=== PATIENT | male | born 1985 | race Caucasian/White ===

== ENCOUNTER 2016-08-31 18:01 | Emergency (ER) | payer MEDICAID ==
[~2016-08-31] VITALS: Ht 177.8 cm; Wt 90.7 kg
[2016-08-31 18:28] VITALS: BP 117/63
--- NOTE | 2016-08-31 19:00 | NUR ---
Patient to bed 07.
--- NOTE | 2016-08-31 19:08 | NUR ---
Dr. Goldberg evaluating patient at bedside.
[2016-08-31] MEDS ORDERED: IBUPROFEN 600 MG TAB PO ONE (19:10)
[2016-08-31] MEDS ORDERED: METHOCARBAMOL 500 MG TAB PO ONE (19:10)
--- NOTE | 2016-08-31 19:15 | NUR ---
PATIENT PRESENTS TO ED WITH C/O RT SHOULDER PAIN/RT FINGER NUMBNESS . PT DENIES N/V/D; SKIN IS PINK/WARM/DRY; AAOX4 WITH EVEN AND STEADY GAIT; LUNGS CLEAR BL; HR EVEN AND REGULAR; PT DENIES ANY FEVER, CP, SOB, OR COUGH AT THIS TIME; PATIENT STATES PAIN OF 8/10 AT THIS TIME; VSS; PATIENT POSITIONED FOR COMFORT; HOB ELEVATED; BEDRAILS UP X2; BED DOWN. ER MD MADE AWARE OF PT STATUS.
--- NOTE | 2016-08-31 19:24 | NUR ---
Patient going to XRAY via wheelchair per tech.
--- NOTE | 2016-08-31 19:30 | NUR ---
PT TAKEN TO XRAY VIA WC
--- NOTE | 2016-08-31 19:34 | NUR ---
Patient back from XRAY via wheelchair per tech.
--- NOTE | 2016-08-31 19:35 | NUR ---
PT RETURNED FROM WC IN STABLE CONDITION
--- NOTE | 2016-08-31 20:00 | NUR ---
LABS AND PIV STARTED, PT TOLERATED WELL
[2016-08-31 20:17] VITALS: BP 111/65
--- NOTE | 2016-08-31 20:17 | NUR ---
Patient discharged with v/s stable. Written and verbal after care instructions given and explained. Patient alert, oriented and verbalized understanding of instructions. Ambulatory with steady gait. All questions addressed prior to discharge. ID band removed. Patient advised to follow up with PMD. Rx of ROBAXIN 500MG, MOTRIN 600MG given. Patient educated on indication of medication including possible reaction and side effects. Opportunity to ask questions provided and answered.
== END 2016-08-31 20:17 | disposition home or self-care (01) ==
LOC: MED 18:01
DX: S46.911A Strain of unspecified muscle, fascia and tendon at shoulder and upper arm level, right arm, initial encounter (principal); X58.XXXA Exposure to other specified factors, initial encounter; Y93.89 Activity, other specified; Y92.89 Other specified places as the place of occurrence of the external cause; Y99.8 Other external cause status
CPT/HCPCS: 73030; 99284

== ENCOUNTER 2016-09-09 17:55 | Emergency (ER) | payer MEDICAID ==
[~2016-09-09] VITALS: Ht 177.8 cm; Wt 95.8 kg
[2016-09-09 18:18] VITALS: BP 118/65
--- NOTE | 2016-09-09 20:01 | NUR ---
PT IS C/O RIGHT GREAT TOE INGROWN TOENAIL , RECURRENT X1 MONTH CELLULITIS RIGHT GLUTEAL AREA, PAIN X 3 WKS PT STATES NO MED HX . DENIES N/V/D; SKIN IS PINK/WARM/DRY; AAOX4 WITH EVEN AND STEADY GAIT; LUNGS CLEAR BL; HR EVEN AND REGULAR; PT DENIES ANY FEVER, CP, SOB, OR COUGH AT THIS TIME; PATIENT STATES PAIN OF 10/10 AT THIS TIME; VSS; PATIENT POSITIONED FOR COMFORT; HOB ELEVATED; BEDRAILS UP X2; BED DOWN. ER MD MADE AWARE OF PT STATUS.
[2016-09-09] MEDS ORDERED: BACITRACIN OINT 500 UNITS/GM PKT TP ONE (20:10)
[2016-09-09] MEDS ORDERED: LIDOCAINE 1% 500 MG/50 ML VIAL INJ SCH (20:10)
[2016-09-09] MEDS ORDERED: IBUPROFEN 800 MG TAB PO ONE (20:10)
[2016-09-09] MEDS ORDERED: LIDOCAINE MPF 1% 50 MG/5 ML VIAL ONE (20:36)
[2016-09-09 22:06] VITALS: BP 111/62
--- NOTE | 2016-09-09 22:06 | NUR ---
Patient discharged with v/s stable. Written and verbal after care instructions given and explained. Patient alert, oriented and verbalized understanding of instructions. Ambulatory with steady gait. All questions addressed prior to discharge. ID band removed. Patient advised to follow up with PMD. Rx of DS 800MG, KEFLEX 500MG given. Patient educated on indication of medication including possible reaction and side effects. Opportunity to ask questions provided and answered.
== END 2016-09-09 22:06 | disposition home or self-care (01) ==
LOC: MED 17:55
DX: L60.0 Ingrowing nail (principal); L08.89 Other specified local infections of the skin and subcutaneous tissue
CPT/HCPCS: 11765; 99285; J2001